=== PATIENT | male | born 1935 | race Hispanic/Latino ===

== ENCOUNTER → 2018-05-22 | Outpatient (CLI) | payer MEDICARE ==
[~2018-05-22] MED LIST: CARV12.511 PO; CEFU500T67 PO; DABI150C PO; DOCU-282 PO; ESOM40CA PO; ESOM40CA54 PO; FERR-82 PO; FERS325 PO; FURO40TA5 PO; LISI-617 PO; METF-444 PO; MULT-1224 PO; MULT-603 PO; OMEP20CA10 PO; ROSU20TA PO; ROSU20TA30 PO; SAW450CA7 PO; SELE200T27 PO; SUCR1TAB PO; TERA2CAP4 PO
== END | disposition home or self-care (01) ==
LOC: SHCH 12:41
PROVIDERS: ATTEND Internal Medicine Cardiovascular Disease
DX: I08.1 Rheumatic disorders of both mitral and tricuspid valves (principal); I27.20 Pulmonary hypertension, unspecified; Z95.1 Presence of aortocoronary bypass graft; Z95.0 Presence of cardiac pacemaker
CPT/HCPCS: 93306

== ENCOUNTER 2019-05-09 09:39 | Emergency (ER) | payer MEDICARE ==
[~2019-05-09 09:39] MED LIST changes: +CALC-991 PO; -CEFU500T67 PO; -DOCU-282 PO; -ESOM40CA PO; -FERR-82 PO; +FERROUS SULFATE PO; -FERS325 PO; +LACTULOSE PO; -METF-444 PO; -MULT-1224 PO; -MULT-603 PO; -OMEP20CA10 PO; +ONE A DAY PO; -ROSU20TA PO; -ROSU20TA30 PO; +ROSU5TAB12 PO; +SAW PALMETTO PO; -SAW450CA7 PO; -SUCR1TAB PO
[2019-05-09] MEDS ORDERED: KETOROLAC TROMETHAMINE 30MG/ML ONE (10:43)
[2019-05-09 11:12] LABS: BASOPHILS % (AUTO) 0.6 % (0.0-5.0); EOSINOPHILS % (AUTO) 1.9 % (0.0-8.0); HEMATOCRIT 40.9 % (42-54); LYMPHOCYTES % (AUTO) 12.8 % (21.0-51.0); MEAN CORPUSCULAR HEMOGLOBIN 29.3 pg (27.0-33.0); MEAN CORPUSCULAR HGB CONC 32.8 g/dL (32.0-36.0); MEAN CORPUSCULAR VOLUME 89.3 fL (79-99); NEUTROPHILS % (AUTO) 74.4 % (40.0-77.0); PLATELET COUNT (AUTO) 206 K/uL (130-400); RED BLOOD CELL COUNT(AUTO) 4.58 MIL/uL (4.50-6.20); RED CELL DISTRIBUTION WIDTH 13.1 % (11.0-15.5); WHITE BLOOD COUNT (AUTO) 6.2 K/uL (4.8-10.8)
[2019-05-09 11:40] LABS: CREATININE 1.5 mg/dL (0.5-1.5); POTASSIUM 4.2 mmol/L (3.5-5.1)
[2019-05-09 11:45] LABS: ALBUMIN 2.6 g/dL (3.5-5.0); BILIRUBIN,TOTAL 0.3 mg/dL (0.2-1.0); TOTAL PROTEIN, SERUM 5.7 g/dL (6.0-8.3)
== END 2019-05-09 12:32 | disposition home or self-care (01) ==
LOC: EDH 09:39
DX: M10.072 Idiopathic gout, left ankle and foot (principal); M10.071 Idiopathic gout, right ankle and foot; I50.9 Heart failure, unspecified; E11.9 Type 2 diabetes mellitus without complications; E78.5 Hyperlipidemia, unspecified; Z98.890 Other specified postprocedural states
CPT/HCPCS: 36415; 80053; 84550; 85025; 96372; 99284; J1885

== ENCOUNTER → 2020-07-07 | Outpatient (CLI) | payer MEDICARE ==
[~2020-07-07] MED LIST changes: -LISI-617 PO; +LISI-809 PO
== END | disposition home or self-care (01) ==
LOC: SHCH 13:01
PROVIDERS: ATTEND Internal Medicine Cardiovascular Disease
DX: I08.1 Rheumatic disorders of both mitral and tricuspid valves (principal); Z95.3 Presence of xenogenic heart valve
CPT/HCPCS: 93306; 93356

== ENCOUNTER 2020-08-13 15:18 | Emergency (ER) | payer MEDICARE ==
[2020-08-13 15:46] LABS: BASOPHILS % (AUTO) 0.4 % (0.0-5.0); EOSINOPHILS % (AUTO) 0.6 % (0.0-8.0); HEMATOCRIT 36.1 % (42-54); MEAN CORPUSCULAR HEMOGLOBIN 29.6 pg (27.0-33.0); MEAN CORPUSCULAR HGB CONC 34.1 g/dL (32.0-36.0); MEAN CORPUSCULAR VOLUME 86.8 fL (79-99); MONOCYTES % (AUTO) 9.5 % (3.0-13.0); NEUTROPHILS % (AUTO) 78.2 % (40.0-77.0); PLATELET COUNT (AUTO) 184 K/uL (130-400); RED BLOOD CELL COUNT(AUTO) 4.16 MIL/uL (4.50-6.20); WHITE BLOOD COUNT (AUTO) 7.8 K/uL (4.8-10.8)
[2020-08-13 16:04] LABS: CREATININE 1.6 mg/dL (0.5-1.5); POTASSIUM 4.1 mmol/L (3.5-5.1)
[2020-08-13 16:09] LABS: BILIRUBIN,TOTAL 0.7 mg/dL (0.2-1.0); TOTAL PROTEIN, SERUM 6.6 g/dL (6.0-8.3)
[2020-08-13] MEDS ORDERED: LIDOCAINE HCL-MPF 1% 2ML VIAL ONE (18:06)
[2020-08-13] MEDS ORDERED: HYDROCODONE/ACETAMINOPHEN 5/325 MG TAB ONE (18:07)
[2020-08-13] MEDS ORDERED: CEFTRIAXONE SODIUM 1 GM ONE (18:07)
== END 2020-08-13 18:52 | disposition left against medical advice (07) ==
LOC: EDH 15:18
DX: L03.114 Cellulitis of left upper limb (principal); I11.0 Hypertensive heart disease with heart failure; I50.9 Heart failure, unspecified; E78.5 Hyperlipidemia, unspecified; E11.9 Type 2 diabetes mellitus without complications; Z95.1 Presence of aortocoronary bypass graft; Z95.810 Presence of automatic (implantable) cardiac defibrillator
CPT/HCPCS: 36415; 73130; 80053; 83605; 85025; 87040 ×2; 96372; 99284; J0696; J3490

== ENCOUNTER 2020-08-18 12:51 | Observation (INO) | payer MEDICARE ==
[~2020-08-18] VITALS: Ht 162.6 cm; Wt 68.5 kg
[2020-08-18] MEDS ORDERED: HYDROCODONE/ACETAMINOPHEN 10/325 MG TAB ONE (13:12)
[2020-08-18 13:54] LABS: BASOPHILS % (AUTO) 0.5 % (0.0-5.0); EOSINOPHILS % (AUTO) 4.5 % (0.0-8.0); HEMATOCRIT 37.2 % (42-54); LYMPHOCYTES % (AUTO) 10.5 % (21.0-51.0); MEAN CORPUSCULAR HEMOGLOBIN 28.7 pg (27.0-33.0); MEAN CORPUSCULAR HGB CONC 33.1 g/dL (32.0-36.0); MEAN CORPUSCULAR VOLUME 86.7 fL (79-99); MONOCYTES % (AUTO) 10.8 % (3.0-13.0); NEUTROPHILS % (AUTO) 73.3 % (40.0-77.0); PLATELET COUNT (AUTO) 234 K/uL (130-400); RED BLOOD CELL COUNT(AUTO) 4.29 MIL/uL (4.50-6.20); RED CELL DISTRIBUTION WIDTH 13.6 % (11.0-15.5); WHITE BLOOD COUNT (AUTO) 8.2 K/uL (4.8-10.8)
[2020-08-18] MEDS ORDERED: CLINDAMYCIN 600 MG/D5% WATER 50 ML IV ONE (13:56)
[2020-08-18 14:05] LABS: CREATININE 1.5 mg/dL (0.5-1.5); POTASSIUM 4.8 mmol/L (3.5-5.1)
[2020-08-18 14:09] LABS: BILIRUBIN,TOTAL 0.6 mg/dL (0.2-1.0); CRP QUANTITATIVE 73.8 mg/L (0.00-9.0); TOTAL PROTEIN, SERUM 7.1 g/dL (6.0-8.3)
[2020-08-18] MEDS ORDERED: SODIUM CHLORIDE 0.9% 1000ML 1,000 ML IV ONE (14:35)
[2020-08-18 16:03] VITALS: BP 121/46
[2020-08-18 18:31] LABS: APPEARANCE,URINE Clear (CLEAR); BILIRUBIN,URINE Negative (NEGATIVE); COLOR,URINE Yellow (YELLOW); GLUCOSE, URINE (UA) Negative (NEGATIVE); KETONES,URINE Negative (NEGATIVE); LEUKOCYTE ESTERASE ,URINE Negative (NEGATIVE); NITRATE,URINE Negative (NEGATIVE); OCCULT BLOOD,URINE Negative (NEGATIVE); PROTEIN,URINE Negative (NEGATIVE)
[2020-08-18 19:57] VITALS: BP 119/62
[2020-08-18] MEDS: SODIUM CHLORIDE 0.9% 1000ML 1,000 ML IV SCH (20:21)
[2020-08-18] MEDS: KETOROLAC TROMETHAMINE 15MG/ML IV SCH (21:30)
[2020-08-19] VITALS (7 sets, daily range): BP systolic 100–118; BP diastolic 46–76
[2020-08-19] MEDS: CLINDAMYCIN 600 MG/D5% WATER 50 ML IV SCH ×4 (00:03→18:45)
[2020-08-19] MEDS: KETOROLAC TROMETHAMINE 15MG/ML IV SCH ×4 (01:47→21:30)
[2020-08-19 05:04] LABS: BASOPHILS % (AUTO) 0.6 % (0.0-5.0); EOSINOPHILS % (AUTO) 6.2 % (0.0-8.0); HEMATOCRIT 32.6 % (42-54); LYMPHOCYTES % (AUTO) 13.2 % (21.0-51.0); MEAN CORPUSCULAR HEMOGLOBIN 29.7 pg (27.0-33.0); MEAN CORPUSCULAR VOLUME 87.2 fL (79-99); MONOCYTES % (AUTO) 11.5 % (3.0-13.0); NEUTROPHILS % (AUTO) 68.3 % (40.0-77.0); PLATELET COUNT (AUTO) 208 K/uL (130-400); RED BLOOD CELL COUNT(AUTO) 3.74 MIL/uL (4.50-6.20); RED CELL DISTRIBUTION WIDTH 13.7 % (11.0-15.5); WHITE BLOOD COUNT (AUTO) 6.3 K/uL (4.8-10.8)
[2020-08-19 05:15] LABS: CREATININE 1.8 mg/dL (0.5-1.5); POTASSIUM 4.7 mmol/L (3.5-5.1)
[2020-08-19] MEDS: SODIUM CHLORIDE 0.9% 1000ML 1,000 ML IV SCH ×2 (09:43→22:10)
[2020-08-19] MEDS: CARVEDILOL 12.5 MG TABLET PO SCH ×2 (09:43→21:02)
[2020-08-19] MEDS: DIPHENHYDRAMINE HCL 25 MG CAPSULE PO PRN (09:45)
[2020-08-19] MEDS ORDERED: TERAZOSIN HCL 2 MG CAPSULE PO SCH (21:00)
[2020-08-19] MEDS ORDERED: LISINOPRIL 5 MG TABLET PO SCH (21:00)
[2020-08-19] MEDS ORDERED: FAMOTIDINE/PF 20 MG/2 ML VIAL IV SCH (21:00)
[2020-08-20] MEDS ORDERED: METHYLPREDNISOLONE SOD SUCC 40MG/ML 1ML IVP SCH (00:15)
[2020-08-20] MEDS: DIPHENHYDRAMINE HCL 25 MG CAPSULE PO PRN (01:11)
[2020-08-20] MEDS: METHYLPREDNISOLONE SOD SUCC 40MG/ML 1ML IVP SCH ×2 (01:11→09:42)
[2020-08-20 03:30] VITALS: BP 123/56
[2020-08-20] MEDS: CLINDAMYCIN 600 MG/D5% WATER 50 ML IV SCH ×3 (05:16→11:56)
[2020-08-20 08:28] VITALS: BP 126/63
[2020-08-20] MEDS ORDERED: DABIGATRAN ETEXILATE MESYLATE 150 MG CAPSULE PO SCH ×2 (09:00)
[2020-08-20] MEDS ORDERED: PANTOPRAZOLE SODIUM 40 MG TABLET.DR PO SCH ×2 (09:00)
[2020-08-20] MEDS ORDERED: FUROSEMIDE 40 MG TABLET PO SCH (09:00)
[2020-08-20] MEDS: CARVEDILOL 12.5 MG TABLET PO SCH (09:43)
[2020-08-20 11:50] VITALS: BP 114/60
[2020-08-20] MEDS: SODIUM CHLORIDE 0.9% 1000ML 1,000 ML IV SCH (14:49)
== END 2020-08-20 17:15 | disposition home or self-care (01) ==
LOC: EDH 12:51 → EDHIP 14:20 → 3CH 15:35
PROVIDERS: ADMIT Internal Medicine; ATTEND Internal Medicine
DX: L03.114 Cellulitis of left upper limb (principal); I13.0 Hypertensive heart and chronic kidney disease with heart failure and stage 1 through stage 4 chronic kidney disease, or unspecified chronic kidney disease; E11.22 Type 2 diabetes mellitus with diabetic chronic kidney disease; N18.9 Chronic kidney disease, unspecified; I50.22 Chronic systolic (congestive) heart failure; I48.0 Paroxysmal atrial fibrillation; E78.5 Hyperlipidemia, unspecified; I25.5 Ischemic cardiomyopathy; Z95.0 Presence of cardiac pacemaker; Z95.1 Presence of aortocoronary bypass graft; Z91.19 Patient's noncompliance with other medical treatment and regimen; Z79.01 Long term (current) use of anticoagulants; Z79.899 Other long term (current) drug therapy
CPT/HCPCS: 36415 ×2; 73130; 73110; 73200; 80048; 80053; 81003; 82550; 82948 ×8; 84550; 85025 ×2; 86140; 87040 ×2; 96361 ×3; 96365; 96366 ×2; 96375 ×2; 96376 ×2; 99285; G0378 ×51; J1885 ×4; J2920 ×2; J3490 ×9; J7030 ×2; Q0163 ×2

== ENCOUNTER → 2020-11-04 | Outpatient (CLI) | payer MEDICARE | END | disposition home or self-care (01) | LOC: SHCH 13:21 | PROVIDERS: ATTEND Internal Medicine Cardiovascular Disease | DX: I82.409 Acute embolism and thrombosis of unspecified deep veins of unspecified lower extremity (principal); R60.0 Localized edema | CPT/HCPCS: 93971 ==